=== PATIENT | male | born 1965 | race African-American/Black ===

== ENCOUNTER 2020-01-08 18:59 | Emergency (ER) | payer MEDICAID ==
[~2020-01-08] VITALS: Ht 175.3 cm; Wt 88.5 kg
[2020-01-08 19:03] VITALS: BP 121/75
--- NOTE | 2020-01-08 19:25 | NUR ---
54 Y/O M PRESENTS TO ED C/O FEELING "ANTSY," AND SHOULDER AND ABD PAIN X 2 HOURS AGO. PT STATES HE WAS SEEN TODAY AT [facility] BUT WAS UNABLE TO SAY WHAT FOR. PT DENIES N/V/D, SOB, AND FEVER. AIRWAY IS INTACT, RR EVEN AND UNLABORED, O2 SAT AT 97% RA. CAP REFILL <3 SECONDS. PT AMBULATORY AND ABLE TO MAKE NEEDS KNOWN. BED LOCKED AND IN LOWEST POSITION, SIDE RAIL UP X1. WILL CONTINUE TO MONITOR. MHX: PT DENIES NKA
--- NOTE | 2020-01-08 19:33 | NUR ---
DR. SPARROW AT BEDSIDE EVALUATING PT.
--- NOTE | 2020-01-08 19:50 | NUR ---
PT REFUSING TREATMENT. REFUSES TO GIVE URINE SAMPLE. VERBALIZES OF WANTING TO LEAVE AMA.
--- NOTE | 2020-01-08 19:50 | NUR ---
EDUCATING PT REGARDING RISKS OF LEAVING AMA, PT VERBALIZES UNDERSTANDING BUT STILL WANTS TO LEAVE AMA. DR. SPARROW MADE AWARE.
--- NOTE | 2020-01-08 19:58 | NUR ---
PT SIGNED AMA PAPERWORK.
[2020-01-08 20:06] VITALS: BP 121/75
--- NOTE | 2020-01-08 20:06 | NUR ---
Patient does not wish to proceed with medical care recommended by DR. SPARROW. Patient given information related to possible complications, up to and including , which could occur as a result of leaving hospital at this time. Patient verbalizes understanding of risks involved leaving against medical advice. Patient has signed AMA form.
== END 2020-01-08 19:58 | disposition left against medical advice (07) ==
LOC: MED 18:59
DX: F41.9 Anxiety disorder, unspecified (principal); R10.84 Generalized abdominal pain; R06.00 Dyspnea, unspecified; F12.90 Cannabis use, unspecified, uncomplicated
CPT/HCPCS: 71045; 93005; 99283; Q0092